=== PATIENT | female | born 1985 | race Caucasian/White ===

== ENCOUNTER → 2016-10-19 | Outpatient (CLI) | payer OTHER ==
--- NOTE | 2016-10-19 14:19 | US ---
October 19, [address] Bergman, Thank you for allowing us to see your patient regarding anatomy. As you know she is a 31 year-old gr avida 1, para 0. Her due date is 03/06/17 which is based on . Her current gestational age based on this dating is 20 weeks 2 days. She had normal NIPT and AFP. Number of fetuses: 1 Placental location: posterior 1.2 cm from the os Cord Insertion: Central presentation: vertex Cervix: 3.9-4.5 cm MVP: 3.7 cm The adnexa were evaluated. No pathology was seen. Right ovary seen Left ovary seen Measurements: Biparietal diameter: 46 mm 19 weeks, 6 days Head circumference: 172 mm 19 weeks, 6 days Abdominal circumference: 147 mm 20 weeks, 0 days Femur length: 33 mm 20 weeks, 3 days Humerus length: 32 mm 20 weeks, 4 days Transcerebellar diameter: 21 mm 20 weeks, 2 days Average ultrasound age: 20 weeks, 1 days Estimated weight: 331 gm weight percentile: 34 % ANATOMY Upper extremities: Normal Lower extremities: Normal Supratentorial brain: Normal Lateral ventricle: 5.2 mm Posterior fossa: Normal Cisterna Magna: 4.0 mm Spine: Normal Nuchal fold: 3.2 Face: Normal nose, lip, profile, alveolar ridge Heart: Normal rate, rhythm, axis, 4 chamber view, LVOT, RVOT, IVS Stomach: Normal Diaphragm Normal Umbilical cord insertion: Normal Right kidney: Normal Left kidney: Normal Bladder: Normal Number of cord vessels: Three. Impression: This is a 31 year-old, 1, para 0 at 20 weeks, 2 days gestation. 1. SIUP with biometry cw stated gestational age. Nl GABE. No anatomic abnormalities noted. 2. I was happy to review these findings with your patient today. Thank you for allowing me to see your patient. NO E&M charged today. Lauren Quinteros MD Diagnosis Division of Maternal Medicine Department of Obstetrics and Gynecology [facility]
--- NOTE | 2016-10-19 18:50 | US ---
Ultrasound Obstetric second trimester, greater than 14 weeks Indication: The estimated gestational age by LMP is 20 weeks and 2 days yielding an EDC of March 06, 2017. Comparison: August 2016 Findings: Number: 1 Presentation: Vertex Placental location: Posterior low-lying, 1.2 cm from the internal cervical os Cervix: 3.9 cm MVP: 3.7 cm heart rate: 163 bpm. Right ovary measures 1.8 x 1.8 x 1.5 cm 3 left ovary measures 2.5 x 2.4 x 1.5 cm per Biometry: Biparietal diameter: 45.83 mm 19 weeks, 6 days Head circumference: 171.99 mm 19 weeks, 6 days Abdominal circumference: 146.9 mm 20 weeks, 0 days Femur length: 32.9 mm 20 weeks, 3 days Humerus length: 31.5 mm 20 weeks, 4 days Transcerebellar diameter: 21.3 mm 20 weeks, 2 days HC/AC: 1.17 (1.09 - 1.26) FL/BPD: 72% FL/AC: 22% Average ultrasound age: 20 weeks, 1 days EDC based on today's average ultrasound age: March 07, 2017 Estimated weight is 331 gms +/- 48 gms. The estimated weight is at the 34 % based on previous dating. ANATOMY SURVEY: Supratentorial brain: Normal Posterior fossa: Normal Spine: Normal Nuchal fold: Normal Nose and lips: Normal Facial profile: Normal Heart: Four chamber heart. 163 bpm. Intact intraventricular septum. Cardiac outflow tracts: Normal Stomach: Normal Umbilical cord insertion: Normal Kidneys: Normal, no pyelectasis Bladder: Normal Number of cord vessels: Three Upper extremities: Visualized Lower extremities: Visualized. Impression: 1. Living corbett in vertex presentation. 2. Size concordant with dates. 3. No overt anomalies detected. 4. Please see Dr. Lauren Quinteros's consult and recommendations.
== END ==
LOC: FIMAGING 12:42
PROVIDERS: ATTEND Obstetrics & Gynecology
DX: Z36 Encounter for antenatal screening of mother (principal); Z3A.20 20 weeks gestation of pregnancy

== ENCOUNTER 2016-11-23 13:56 | Observation (INO) | payer OTHER ==
[2016-11-23 15:25] LABS: % IMMATURE GRANULYOCYTES 0.5 % (0.0-1.1); ABSOLUTE IMMATURE GRANULOCYTES 0.04 10^3/uL (0.00-0.10); ADD DIFF? NO; ADD MORPH? NO; ADD SCAN? NO; ATYPICAL LYMPHOCYTE FLAG 10 (0-99); FRAGMENT RBC FLAG 0 (0-99); HEMATOCRIT 36.9 % (38.0-47.0); HEMOGLOBIN 12.8 g/dL (12.6-16.3); LEFT SHIFT FLG 0 (0-99); LIPEMIA HEMOLYSIS FLAG 90 (0-99); MEAN CELL HEMOGLOBIN 31.8 pg (27.9-34.1); MEAN CELL HEMOGLOBIN CONCENTR. 34.7 g/dL (32.4-36.7); MEAN CELL VOLUME 91.6 fL (81.5-99.8); MEAN PLATELET VOLUME 9.2 fL (8.7-11.7); PLATELET CLUMPS FLAG 10 (0-99); PLATELET COUNT 176 10^3/uL (150-400); RED BLOOD CELL COUNT 4.03 10^6/uL (4.18-5.33); RED CELL DISTRIBUTION WIDTH 12.9 % (11.5-15.2)
[2016-11-23 15:47] LABS: APTT 26.8 SEC (23.0-38.0); INR 1.02 (0.83-1.16); PROTIME(PATIENT) 13.3 SEC (12.0-15.0)
[2016-11-23] MEDS ORDERED: BETAMETHASONE IM SYRINGE IM ONE (17:30)
[2016-11-24] MEDS ORDERED: BETAMETHASONE IM SYRINGE IM ONE (16:30)
== END 2016-11-23 17:59 | disposition home or self-care (01) ==
LOC: FLD 13:56
PROVIDERS: ADMIT Obstetrics & Gynecology; ATTEND Obstetrics & Gynecology
DX: Z03.79 Encounter for other suspected maternal and fetal conditions ruled out (principal)
CPT/HCPCS: G0378 ×2; J0702

== ENCOUNTER → 2016-12-20 | Outpatient (CLI) | payer OTHER | LOC: FIMAGING 13:23 | PROVIDERS: ATTEND Obstetrics & Gynecology | DX: Z34.01 Encounter for supervision of normal first pregnancy, first trimester (principal); Z3A.12 12 weeks gestation of pregnancy ==

== ENCOUNTER → 2017-01-10 | Outpatient (CLI) | payer OTHER | LOC: FIMAGING 12:22 | PROVIDERS: ATTEND Obstetrics & Gynecology | DX: Z34.83 Encounter for supervision of other normal pregnancy, third trimester (principal); S39.91XA Unspecified injury of abdomen, initial encounter; Z3A.32 32 weeks gestation of pregnancy ==

== ENCOUNTER → 2017-02-08 | Outpatient (CLI) | payer OTHER | LOC: FIMAGING 13:29 | PROVIDERS: ATTEND Obstetrics & Gynecology | DX: O09.813 Supervision of pregnancy resulting from assisted reproductive technology, third trimester (principal); Z3A.36 36 weeks gestation of pregnancy ==

== ENCOUNTER 2017-03-14 06:07 | Inpatient (IN) | payer OTHER ==
[2017-03-14] MEDS ORDERED: LR 1,000 ML IV PRN (06:13)
[2017-03-14] MEDS ORDERED: OXYTOCIN/RINGERS LACTATE 1,000 ML IV PRN (06:13)
[2017-03-14] MEDS ORDERED: EPSOM SALT 454 GM TP PRN (06:13)
[2017-03-14] MEDS ORDERED: TERBUTALINE SULFATE 1 MG/ML VIAL IV PRN (06:13)
[2017-03-14] MEDS ORDERED: OLIVE OIL 118 ML BTL MISC PRN (06:13)
[2017-03-14] MEDS ORDERED: OXYTOCIN 10 UNIT/ML VIAL ONE (06:19)
[2017-03-14] MEDS ORDERED: LIDOCAINE 1% 300 MG/30 ML SDV ONE ×2 (06:19→06:59)
[2017-03-14] MEDS ORDERED: AMMONIA AROMATIC 1 EACH AMP IH ONE (06:19)
[2017-03-14] MEDS ORDERED: TERBUTALINE SULFATE 1 MG/ML VIAL ONE ×2 (06:19→07:00)
[2017-03-14] MEDS ORDERED: OLIVE OIL 118 ML BTL ONE ×2 (06:19→06:59)
[2017-03-14] MEDS ORDERED: MISOPROSTOL 200 MCG TAB ONE ×2 (06:20→07:00)
[2017-03-14 06:41] LABS: ABSOLUTE IMMATURE GRANULOCYTES 0.09 10^3/uL (0.00-0.10); ADD DIFF? NO; ADD MORPH? NO; ADD SCAN? NO; ATYPICAL LYMPHOCYTE FLAG 10 (0-99); FRAGMENT RBC FLAG 0 (0-99); HEMATOCRIT 40.4 % (38.0-47.0); LEFT SHIFT FLG 0 (0-99); LIPEMIA HEMOLYSIS FLAG 90 (0-99); MEAN CELL HEMOGLOBIN 31.7 pg (27.9-34.1); MEAN CELL HEMOGLOBIN CONCENTR. 34.7 g/dL (32.4-36.7); MEAN CELL VOLUME 91.6 fL (81.5-99.8); MEAN PLATELET VOLUME 9.3 fL (8.7-11.7); PLATELET CLUMPS FLAG 0 (0-99); PLATELET COUNT 178 10^3/uL (150-400); RED BLOOD CELL COUNT 4.41 10^6/uL (4.18-5.33); RED CELL DISTRIBUTION WIDTH 13.1 % (11.5-15.2)
[2017-03-14] MEDS ORDERED: OXYTOCIN/LR *STANDARD DOSE PROTOCOL IV SCH (07:00)
--- NOTE | 2017-03-14 09:22 | OBPROG ---
OBG Progress Note Assessment/Plan: Assessment: 32 y/o at 41+1 weeks EGA admitted for postdates IOL - Plan: 1) Labor: CX was 2-3/70/-2, santiago bulb placed to help dilate cervix, and she had SROM with clear fluid noted after placement. Will keep santiago in for now to help mechanically dilate the cervix. Continue with pitocin for induction. 2) status - over all reassuring with moderate variability and accels present. 3) Pain: No issues now, but more pain noted after AROM. May have fentanyl or KARLY when desired. 4) GBS negative 03/14/17 09:20 Subjective: Pt reports contraction pain is not that strong. Objective: 03/14/17 06:34 Patient ABO/Rh O POSITIVE 03/14/17 06:34 - SVE Dilation (cm): 3 Effacement (%): 75 Station: -2 FHR Pattern Variability: Moderate FHR Category: 2 (occasional rare late decel over the last 2 hours, no decels in the last 30 minutes.) Membranes: SROM Amniotic Fluid Color: Clear ICD10 Worksheet Patient Problems: Problems Problem Status Onset Post-dates Acute - ICD10 Problem Qualifiers (1) Post-dates Qualifiers: Post-term type: 40-42 weeks gestation Qualified Code(s): O48.0 - Post-term
[2017-03-14] MEDS ORDERED: PHENYLEPHRINE HCL 100 MCG/ML SYR ONE (12:05)
[2017-03-14] MEDS ORDERED: fentaNYL 2MCG/ML/BUP 0.1% RTU 100 ML BAG EP ONE (12:05)
[2017-03-14] MEDS ORDERED: BUPIVACAINE 0.25% 30 ML SDV ONE (12:05)
[2017-03-14] MEDS ORDERED: NALOXONE HCL 0.4 MG/ML INJ IVP PRN (12:37)
[2017-03-14] MEDS ORDERED: ONDANSETRON 4 MG/2 ML VIAL IVP PRN (12:37)
[2017-03-14] MEDS ORDERED: PHENYLEPHRINE HCL 100 MCG/ML SYR IVP PRN (12:37)
--- NOTE | 2017-03-14 12:47 | OBPROG ---
OBG Progress Note Assessment/Plan: Assessment: 32 y/o at 41+1 weeks EGA admitted for postdates IOL - Plan: 1) Labor: Progressing well, santiago bulb out, and CX now 5-90/0. Will continue with pitocin for induction. 2) status - over all reassuring with moderate variability and accels present. 3) Pain: KARLY just placed, slowly getting more comfortable. 4) GBS negative 03/14/17 12:46 Subjective: Pt requested KARLY - it was just placed, she is slowly getting more comfortable. Objective: 03/14/17 06:34 Patient ABO/Rh O POSITIVE 03/14/17 06:34 - SVE Dilation (cm): 5 Effacement (%): 75 Station: 0 FHR (bpm): 145 FHR Pattern Variability: Moderate FHR Category: 1 Amniotic Fluid Color: Clear ICD10 Worksheet Patient Problems: Problems Problem Status Onset Post-dates Acute - ICD10 Problem Qualifiers (1) Post-dates Qualifiers: Post-term type: 40-42 weeks gestation Qualified Code(s): O48.0 - Post-term
[2017-03-14] MEDS ORDERED: fentaNYL 2MCG/ML/BUP 0.1% RTU 100 ML EP SCH (13:00)
[2017-03-14] MEDS ORDERED: LR 500 ML IV SCH (13:00)
--- NOTE | 2017-03-14 15:39 | OBPROG ---
OBG Progress Note Assessment/Plan: Assessment: 32 y/o at 41+1 weeks EGA admitted for postdates IOL - Plan: 1) Labor: Now c/c/+2, will start pushing. 2) status - over all reassuring with moderate variability and accels present. 3) Pain: KARLY in place. 4) GBS negative 03/14/17 15:42 Subjective: Pt feels more pressure. Objective: 03/14/17 06:34 Patient ABO/Rh O POSITIVE 03/14/17 06:34 - SVE Dilation (cm): 10 Effacement (%): 100 Station: +2 Current Contraction Pattern: Regular FHR (bpm): 140 FHR Pattern Variability: Moderate FHR Category: 1 Amniotic Fluid Color: Clear ICD10 Worksheet Patient Problems: Problems Problem Status Onset Post-dates Acute - ICD10 Problem Qualifiers (1) Post-dates Qualifiers: Post-term type: 40-42 weeks gestation Qualified Code(s): O48.0 - Post-term
[2017-03-14] MEDS ORDERED: POLYETHYLENE GLYCOL 3350 17 GM PKT PO PRN (18:01)
[2017-03-14] MEDS ORDERED: HYDROCODONE/APAP 5/325 TAB PO PRN (18:01)
[2017-03-14] MEDS ORDERED: DOCUSATE SODIUM 100 MG CAP PO PRN (18:01)
[2017-03-14] MEDS ORDERED: MAGNESIUM HYDROXIDE 30 ML UDCUP PO PRN (18:01)
[2017-03-14] MEDS ORDERED: LACTULOSE 20 GM/30 ML UDCUP PO PRN (18:01)
[2017-03-14] MEDS ORDERED: BISACODYL 10 MG SUPP PR PRN (18:01)
[2017-03-14] MEDS ORDERED: HYDROCORTISONE 0.5% CREAM TP PRN (18:01)
[2017-03-14] MEDS ORDERED: SIMETHICONE 80 MG TAB CHEW PO PRN (18:01)
[2017-03-14] MEDS ORDERED: ACETAMINOPHEN 325 MG TAB PO PRN (18:01)
--- NOTE | 2017-03-14 18:02 | OBPROC ---
- Labor and Delivery Onset of Contractions Date: 03/14/17 Onset of Contractions Time: 10:30 Onset of Contractions Type: Induced Rupture of Membranes Date: 03/14/17 Rupture of Membranes Time: 09:16 Rupture of Membranes Type: Spontaneous Amniotic Fluid Color: Clear Dilation Complete Time: 15:30 Delivery Type: Spontaneous Placenta Delivery Date: 03/14/17 Placenta Delivery Time: 16:47 Episiotomy/Laceration: 3rd Degree (repaired and hemostatic), Sulcus (2-3 cm right upper sulcus tear @ 10:00 position, repaired with figure of eight stitches of 3-0 vicryl.) Repair: 2-0, 3-0, 4-0, Vicryl EBL: 400 cc Complications: None - Medications Labor Augmentation/Induction Meds Used: Pitocin Labor Augmentation/Induction Indication: Post Dates Anesthesia: Epidural - Info Infant A Delivery Date: 03/14/17 Delivery Time: 16:37 Sex of Infant: Female Score (1 Min): 8 Score (5 Min): 8 (Pt delivered with baby in PARVIZ position with excellent spontaneous cry noted. Baby placed on maternal abdomen, cord clamped x 2 and cut after 2 minutes, then placenta delivered easily. Uterus massaged and firm. Cervix intact. Perineum noted to have a partial 3rd degree tear with intact muscle sphincter inferiorly. The skin edge of the perineum tore to the anal verge. Initially the lower apex was seen well, but then after closure of the rectal sphincter muscles, the apex was no longer seen; so the sphincter repair was opened, a rectal exam was done, and the inferior apex of the tear was seen about 5-10 mm into the anal opening. A 4-0 vicryl was used to start the repair at this inferior apex and close the skin up 1-2 cm up the perineum. The sphincter was then repaired with 4 figure of eight stitches using 2-0 vicryl using the PISA method. The remaining 2nd degree was repaired with 2-0 vicryl using a crown stitch. The tear went up a little bit into the left labia which was repaired with interrupted 3-0 vicryl. There was bleeding and exam revealed a 2-3 cm tear of the vagina along the upper right corner running distal to proximal that was repaired with figure of eight stitches and hemostatic. Patient tolerated repair well w/ KARLY in place. EBL 350-400 cc.)
[2017-03-14] MEDS: IBUPROFEN 600 MG TAB PO PRN (18:14)
[2017-03-14] MEDS: SENNOSIDES/DOCUSATE SODIUM TAB PO SCH (21:56)
[2017-03-15] MEDS: IBUPROFEN 600 MG TAB PO PRN ×4 (00:14→18:55)
--- NOTE | 2017-03-15 08:48 | SOAPPROG ---
SOAP Progress Note Assessment/Plan: Assessment: 32 y.o. s/p PPD #1. Recovering well with ice on perineum. Plan: Routine care. Bowel protocol PRN. consult. Anticipate discharge to home tomorrow. 03/15/17 08:45 Subjective: Reports feeling well with good pain control and minimal vaginal bleeding. Ice and tucks on perineum. with assistance. Eating and drinking well without nausea or vomiting. Ambulating ad braulio without vertigo. Appropriate mood with good support system. Objective: Vital Signs Temp Pulse Resp BP Pulse Ox 36.9 C 72 14 101/68 94 03/14/17 21:04 03/14/17 21:04 03/14/17 21:04 03/14/17 21:04 03/14/17 20:00 Laboratory Results 03/15/17 05:30 03/14/17 03/15/17 03/16/17 05:59 05:59 05:59 Output Total 400 Balance -400 - Time Spent With Patient Time Spent With Patient: 20 minutes - Pending Discharge Pending Discharge Within 24 Hours: Yes Pending Discharge Date: 03/16/17 Pending Discharge Time: 11:00 Physical Exam - Physical Exam General Appearance: WD/WN, alert, no apparent distress EENT: normal ENT inspection Neck: non-tender, full range of motion, normal inspection Respiratory: lungs clear Cardiac/Chest: regular rate, rhythm Abdomen: non-tender, soft Pelvic Exam: normal external exam Rectal: deferred Back: Normal inspection Skin: normal color, warm/dry Lymphatic: no adenopathy Extremities: normal range of motion, non-tender Neuro/Psych: alert, normal mood/affect, oriented x 3 ICD10 Worksheet Patient Problems: Problems Problem Status Onset Post-dates Acute
[2017-03-15] MEDS: SENNOSIDES/DOCUSATE SODIUM TAB PO SCH (12:18)
[2017-03-16] MEDS: SENNOSIDES/DOCUSATE SODIUM TAB PO SCH ×2 (01:30→08:44)
[2017-03-16] MEDS: IBUPROFEN 600 MG TAB PO PRN ×2 (01:31→07:35)
--- NOTE | 2017-03-16 08:54 | OBGCSDC ---
General Delivery Information - General Info : 1 Para: 1 Delivery Physician/CNM: Maylin Bergman Labs: Patient ABO/Rh O POSITIVE 03/14/17 06:34 Hct 34.6 % (38.0-47.0) L 03/15/17 05:30 Vaginal - Diagnosis IUP (Weeks): 41 Labor: Induced Rupture of Membranes Type: Spontaneous Amniotic Fluid Color: Clear Laceration: 3rd Degree Repair: 2-0, 3-0, 4-0, Vicryl Complications: None - Operations/Procedures Delivery Type: Spontaneous - Hospital Course Antepartum: Postdates Intrapartum: IOL at 41w1d, FB, AROM, pitocin. Partial 3rd deg laceration, repaired : Routine pp care. Rh pos, Rub imm - Delivery EBL: 400 cc Anesthesia: Epidural Discharge Information - Discharge Information Discharge Medications: Other (Specify) (colace/miralax) Condition: Good Instruction/Follow Up: Two Weeks Discharge Physician/CNM: Yu Nolan Discharge Date: 03/16/17
[2017-03-16 12:14] VITALS: BP 120/86; PULSE 71; RESP 16; TEMP 98.2; O2SAT 98
== END 2017-03-16 14:00 | disposition home or self-care (01) | DRG 775 ==
LOC: FLD 06:07 → FOB 19:42
PROVIDERS: ADMIT Obstetrics & Gynecology; ATTEND Obstetrics & Gynecology
PROC: 3E033VJ Introduction of Other Hormone into Peripheral Vein, Percutaneous Approach (ICD-10-PCS; principal; 2017-03-14)
PROC: 10E0XZZ Delivery of Products of Conception, External Approach (ICD-10-PCS; principal; 2017-03-14)
PROC: 0DQR0ZZ Repair Anal Sphincter, Open Approach (ICD-10-PCS; principal; 2017-03-14)
DX: O48.0 Post-term pregnancy (principal); O70.20 Third degree perineal laceration during delivery, unspecified; Z3A.41 41 weeks gestation of pregnancy; Z37.0 Single live birth
CPT/HCPCS: J2370; J2405; J2590; J3105